=== PATIENT | male | born 1945 | race Caucasian/White ===

== ENCOUNTER 2019-10-07 01:07 | Inpatient (IN) | payer OTHER ==
[~2019-10-07] VITALS: Ht 170.2 cm; Wt 80.7 kg
[2019-10-07 01:30] VITALS: BP_SYST 150
[2019-10-07 03:15] LABS: BILIRUBIN,URINE NEGATIVE (NEGATIVE); BLOOD, URINE 1+ (NEGATIVE); CLARITY/URINE CLEAR (CLEAR); COLOR,URINE YELLOW (YELLOW); GLUCOSE,URINE NEGATIVE (NEGATIVE); KETONES,URINE NEGATIVE (NEGATIVE); LEUKOCYTE ESTERASE ,URINE NEGATIVE (NEGATIVE); NITRITE, URINE NEGATIVE (NEGATIVE); PH,URINE 7.5 (5.0-8.0); PROTEIN URINE NEGATIVE (NEGATIVE); UROBILINOGEN,URINE 0.2 (0.2-1.0)
[2019-10-07 03:26] LABS: BACTERIA,URINE FEW /HPF (None Seen); WBC,URINE 0-3 /HPF (0-3)
[2019-10-07 03:27] LABS: BARBITURATE, URINE NEGATIVE (NEG <=200); BENZODIAZEPINE, URINE NEGATIVE (NEG <=150); CANNABINOID, URINE NEGATIVE (NEG <=50); COCAINE, URINE NEGATIVE (NEG <=150); METHAMPHETAMINES SCREEN,URINE NEGATIVE (NEG <=500); OPIATE, URINE POSITIVE (NEG <=100); PHENCYCLIDINE SCREEN,URINE NEGATIVE (NEG <=25); UR TRICYCLIC ANTIDEPRESSANTS NEGATIVE (NEG <=300); URINE AMPHETAMINE NEGATIVE (NEG <=500); URINE METHADONE NEGATIVE (NEG <=200); URINE OXYCODONE SCREEN NEGATIVE (NEG <=100); URINE PROPOXYPHENE SCREEN NEGATIVE (NEG <=300)
[2019-10-07 03:31] LABS: BASOPHILS % (AUTO) 0.2 % (0.0-2.0); EOSINOPHILS % (AUTO) 0.5 % (0.0-4.0); HEMATOCRIT 34.2 % (36-54); HEMOGLOBIN 11.7 g/dL (14.0-18.0); LYMPHOCYTES # (AUTO) 0.7 K/uL (1.0-5.5); LYMPHOCYTES % (AUTO) 9.5 % (20.5-51.5); MEAN CORPUSCULAR HEMOGLOBIN 32 pg (27-31); MEAN CORPUSCULAR HGB CONC 34 % (32-36); MEAN CORPUSCULAR VOLUME 94 fL (79.0-98.0); MONOCYTES # (AUTO) 1.2 K/uL (0.0-1.0); MONOCYTES % (AUTO) 16.4 % (1.7-9.3); NEUTROPHILS # (AUTO) 5.6 K/uL (1.8-7.7); NEUTROPHILS % (AUTO) 73.4 % (40.0-70.0); PLATELET COUNT (AUTO) 215 K/uL (130-430); RED BLOOD CELL COUNT(AUTO) 3.66 MIL/uL (4.2-6.2); RED CELL DISTRIBUTION WIDTH 14.3 % (9.0-15.0); WHITE BLOOD COUNT (AUTO) 7.6 K/uL (4.8-10.8)
[2019-10-07 03:46] LABS: ANION GAP 9 (5-15); CALCIUM 9.6 mg/dL (8.4-11.0); CHLORIDE 100 mmol/L (98-107); CREATININE 0.66 mg/dL (0.55-1.30); GLUCOSE 121 mg/dL (70-99); POTASSIUM 3.7 mmol/L (3.5-5.1); SODIUM SERUM 132 mmol/L (136-145); UREA NITROGEN, BLOOD 11 mg/dL (8-21)
[2019-10-07 03:52] LABS: ALANINE AMINOTRANSFERASE 58 U/L (12-78); ALBUMIN 2.6 g/dL (3.4-4.8); ASPARTATE AMINOTRANSFERASE 49 U/L (10-37); TOTAL BILIRUBIN 0.5 mg/dL (0.0-1.0)
[2019-10-07 03:53] LABS: ALCOHOL, BLOOD < 3 mg/dL (<10)
[2019-10-07] MEDS ORDERED: OSELTAMIVIR PHOSPHATE 75 MG CAPSULE PO ONE (04:15)
[2019-10-07] MEDS ORDERED: RISP1TAB7 PO (06:17)
[2019-10-07] MEDS ORDERED: PREG75CA PO (06:18)
[2019-10-07] MEDS ORDERED: MEMA1CAP4 PO (06:22)
[2019-10-07] MEDS ORDERED: TAMS-11 PO (06:23)
[2019-10-07] MEDS ORDERED: LINA145C PO (06:24)
[2019-10-07] MEDS ORDERED: HYDR-3925 PO (06:24)
[2019-10-07] MEDS ORDERED: ROSU5TAB13 PO (06:28)
[2019-10-07] MEDS ORDERED: HALOPERIDOL LACTATE 5 MG/ML VIAL IM PRN (06:45)
[2019-10-07] MEDS: ACETAMINOPHEN 325 MG TABLET PO PRN (08:39)
[2019-10-07 09:20] VITALS: BP_SYST 143
[2019-10-07 09:44] VITALS: BP_SYST 143
[2019-10-07 11:24] VITALS: BP_SYST 135
[2019-10-07] MEDS ORDERED: NALOXONE HCL 0.4 MG/ML AMP (NARCAN) IVP PRN (11:30)
[2019-10-07] MEDS: HYDROcodone/ACETAMIN 10-325 MG TAB PO PRN (15:58)
[2019-10-07 16:00] VITALS: BP_SYST 153
[2019-10-07] MEDS: risperiDONE 1 MG TABLET (RisperDAL) PO SCH (17:52)
[2019-10-07] MEDS: PREGABALIN 75 MG CAPSULE (LYRICA) PO SCH (21:00)
[2019-10-07] MEDS: TAMSULOSIN HCL 0.4 MG CAP PO SCH (21:00)
[2019-10-07 21:10] VITALS: BP_SYST 137
[2019-10-08 02:00] VITALS: BP_SYST 136
[2019-10-08] MEDS: ATORVASTATIN 20 MG TABLET PO SCH (08:08)
[2019-10-08] MEDS: PREGABALIN 75 MG CAPSULE (LYRICA) PO SCH ×2 (08:08→20:50)
[2019-10-08 08:09] VITALS: BP_SYST 125
[2019-10-08] MEDS: HYDROcodone/ACETAMIN 10-325 MG TAB PO PRN ×2 (08:09→17:19)
[2019-10-08 08:17] LABS: BASOPHILS # (AUTO) 0.1 K/uL (0.0-0.2); BASOPHILS % (AUTO) 0.8 % (0.0-2.0); EOSINOPHILS % (AUTO) 0.1 % (0.0-4.0); HEMATOCRIT 34.2 % (36-54); HEMOGLOBIN 11.7 g/dL (14.0-18.0); LYMPHOCYTES # (AUTO) 0.9 K/uL (1.0-5.5); MEAN CORPUSCULAR HEMOGLOBIN 32 pg (27-31); MEAN CORPUSCULAR HGB CONC 34 % (32-36); MEAN CORPUSCULAR VOLUME 93 fL (79.0-98.0); MONOCYTES # (AUTO) 1.1 K/uL (0.0-1.0); NEUTROPHILS # (AUTO) 4.3 K/uL (1.8-7.7); NEUTROPHILS % (AUTO) 68.1 % (40.0-70.0); PLATELET COUNT (AUTO) 248 K/uL (130-430); RED BLOOD CELL COUNT(AUTO) 3.67 MIL/uL (4.2-6.2); RED CELL DISTRIBUTION WIDTH 14.4 % (9.0-15.0); WHITE BLOOD COUNT (AUTO) 6.3 K/uL (4.8-10.8)
[2019-10-08 08:53] LABS: CHLORIDE 100 mmol/L (98-107); POTASSIUM 3.5 mmol/L (3.5-5.1); SODIUM SERUM 133 mmol/L (136-145)
[2019-10-08 08:54] LABS: ALANINE AMINOTRANSFERASE 53 U/L (12-78); ALBUMIN 2.5 g/dL (3.4-4.8); ANION GAP 8 (5-15); ASPARTATE AMINOTRANSFERASE 39 U/L (10-37); CALCIUM 9.7 mg/dL (8.4-11.0); CREATININE 0.85 mg/dL (0.55-1.30); GLUCOSE 105 mg/dL (70-99); TOTAL BILIRUBIN 0.4 mg/dL (0.0-1.0); UREA NITROGEN, BLOOD 11 mg/dL (8-21)
[2019-10-08] MEDS ORDERED: NON-FORMULARY MEDICATION (Linaclotide (Linzess) 145 MCG) PO SCH (09:00)
[2019-10-08] MEDS ORDERED: MEMANTINE HCL PO SCH (09:00)
[2019-10-08] MEDS ORDERED: [UNRECOGNIZED DRUG - OTHER] PO SCH (09:00)
[2019-10-08] MEDS ORDERED: DONEPEZIL HCL PO SCH (09:00)
[2019-10-08 12:00] VITALS: BP_SYST 107
[2019-10-08] MEDS ORDERED: ANUSOL 1 EA SUPP.RECT (PREPARATION H) RC ONE (16:45)
[2019-10-08 17:00] VITALS: BP_SYST 115
[2019-10-08] MEDS: risperiDONE 1 MG TABLET (RisperDAL) PO SCH (17:18)
[2019-10-08 20:14] VITALS: BP_SYST 135
[2019-10-08] MEDS: ANUSOL 1 EA SUPP.RECT (PREPARATION H) RC SCH (20:50)
[2019-10-08] MEDS: TAMSULOSIN HCL 0.4 MG CAP PO SCH (20:50)
[2019-10-08 23:46] VITALS: BP_SYST 136
[2019-10-09 07:50] VITALS: BP_SYST 114
[2019-10-09] MEDS: ANUSOL 1 EA SUPP.RECT (PREPARATION H) RC SCH ×2 (09:01→21:06)
[2019-10-09] MEDS: PREGABALIN 75 MG CAPSULE (LYRICA) PO SCH ×2 (09:01→21:06)
[2019-10-09] MEDS: ATORVASTATIN 20 MG TABLET PO SCH (09:01)
[2019-10-09 12:00] VITALS: BP_SYST 118
[2019-10-09] MEDS: HYDROcodone/ACETAMIN 10-325 MG TAB PO PRN (13:29)
[2019-10-09 21:01] VITALS: BP_SYST 124
[2019-10-09] MEDS: TAMSULOSIN HCL 0.4 MG CAP PO SCH (21:06)
[2019-10-10 00:29] VITALS: BP_SYST 119
[2019-10-10] MEDS: ACETAMINOPHEN 325 MG TABLET PO PRN (00:32)
[2019-10-10 08:09] VITALS: BP_SYST 112
[2019-10-10] MEDS: ATORVASTATIN 20 MG TABLET PO SCH (08:10)
[2019-10-10] MEDS: PREGABALIN 75 MG CAPSULE (LYRICA) PO SCH ×2 (08:10→21:07)
[2019-10-10] MEDS: ANUSOL 1 EA SUPP.RECT (PREPARATION H) RC SCH ×2 (08:11→21:00)
[2019-10-10] MEDS: QUEtiapine FUMARATE 25 MG TABLET PO SCH ×2 (08:18→15:00)
[2019-10-10] MEDS: HYDROcodone/ACETAMIN 10-325 MG TAB PO PRN ×2 (08:19→13:03)
[2019-10-10 12:17] VITALS: BP_SYST 109
[2019-10-10] MEDS ORDERED: CHOLECALCIFEROL (VITAMIN D3) 2,000 UNIT TABLET PO ONE (15:45)
[2019-10-10] MEDS ORDERED: MAGNESIUM OXIDE 400 MG TABLET PO ONE (15:45)
[2019-10-10] MEDS ORDERED: ASCORBIC ACID 500 MG TABLET PO ONE (15:45)
[2019-10-10 16:00] VITALS: BP_SYST 159
[2019-10-10] MEDS: ASPIRIN 325 MG TABLET (ECOTRIN) PO SCH (18:18)
[2019-10-10] MEDS ORDERED: QUEtiapine FUMARATE 25 MG TABLET PO SCH (21:00)
[2019-10-10] MEDS: TAMSULOSIN HCL 0.4 MG CAP PO SCH (21:07)
[2019-10-10] MEDS: MAGNESIUM OXIDE 400 MG TABLET PO SCH (21:07)
[2019-10-10] MEDS: OSELTAMIVIR PHOSPHATE 75 MG CAPSULE PO SCH (21:07)
[2019-10-10] MEDS: CHOLECALCIFEROL (VITAMIN D3) 2,000 UNIT TABLET PO SCH (21:07)
[2019-10-10] MEDS: ASCORBIC ACID 500 MG TABLET PO SCH (21:07)
[2019-10-10 21:08] VITALS: BP_SYST 139
[2019-10-10 23:33] VITALS: BP_SYST 119
[2019-10-11 07:13] LABS: BASOPHILS % (AUTO) 0.5 % (0.0-2.0); EOSINOPHILS % (AUTO) 0.2 % (0.0-4.0); HEMATOCRIT 33.9 % (36-54); HEMOGLOBIN 11.5 g/dL (14.0-18.0); LYMPHOCYTES % (AUTO) 16.5 % (20.5-51.5); MEAN CORPUSCULAR HEMOGLOBIN 32 pg (27-31); MEAN CORPUSCULAR HGB CONC 34 % (32-36); MEAN CORPUSCULAR VOLUME 94 fL (79.0-98.0); MONOCYTES # (AUTO) 0.3 K/uL (0.0-1.0); MONOCYTES % (AUTO) 5.4 % (1.7-9.3); NEUTROPHILS # (AUTO) 4.9 K/uL (1.8-7.7); NEUTROPHILS % (AUTO) 77.4 % (40.0-70.0); PLATELET COUNT (AUTO) 366 K/uL (130-430); RED BLOOD CELL COUNT(AUTO) 3.61 MIL/uL (4.2-6.2); RED CELL DISTRIBUTION WIDTH 13.9 % (9.0-15.0); WHITE BLOOD COUNT (AUTO) 6.3 K/uL (4.8-10.8)
[2019-10-11 07:30] LABS: PROTHROMBIN TIME 10.2 SECS (9.5-12.5)
[2019-10-11 07:44] LABS: ALANINE AMINOTRANSFERASE 60 U/L (12-78); ALBUMIN 2.5 g/dL (3.4-4.8); ANION GAP 7 (5-15); ASPARTATE AMINOTRANSFERASE 51 U/L (10-37); CALCIUM 9.2 mg/dL (8.4-11.0); CHLORIDE 101 mmol/L (98-107); CREATININE 0.93 mg/dL (0.55-1.30); GLUCOSE 114 mg/dL (70-99); POTASSIUM 3.8 mmol/L (3.5-5.1); SODIUM SERUM 135 mmol/L (136-145); TOTAL BILIRUBIN 0.3 mg/dL (0.0-1.0); UREA NITROGEN, BLOOD 11 mg/dL (8-21)
[2019-10-11] MEDS: PREGABALIN 75 MG CAPSULE (LYRICA) PO SCH (08:11)
[2019-10-11] MEDS: ASPIRIN 325 MG TABLET (ECOTRIN) PO SCH (08:11)
[2019-10-11] MEDS: MAGNESIUM OXIDE 400 MG TABLET PO SCH (08:11)
[2019-10-11] MEDS: OSELTAMIVIR PHOSPHATE 75 MG CAPSULE PO SCH (08:11)
[2019-10-11] MEDS: ASCORBIC ACID 500 MG TABLET PO SCH (08:11)
[2019-10-11] MEDS: ATORVASTATIN 20 MG TABLET PO SCH (08:11)
[2019-10-11] MEDS: QUEtiapine FUMARATE 25 MG TABLET PO SCH ×2 (08:11→14:45)
[2019-10-11] MEDS: ANUSOL 1 EA SUPP.RECT (PREPARATION H) RC SCH (08:12)
[2019-10-11] MEDS: CHOLECALCIFEROL (VITAMIN D3) 2,000 UNIT TABLET PO SCH (08:12)
[2019-10-11 08:13] VITALS: BP_SYST 120
[2019-10-11 12:35] VITALS: BP_SYST 110
[2019-10-11 14:02] VITALS: BP_SYST 114
[2019-10-11] MEDS: HYDROcodone/ACETAMIN 10-325 MG TAB PO PRN (15:38)
[2019-10-11 16:01] VITALS: BP_SYST 114
[2019-10-11] MEDS ORDERED: SER25 PO (17:11)
[2019-10-11] MEDS ORDERED: QUET50TA PO (17:12)
[2019-10-11] MEDS ORDERED: OSEL75CA PO (17:13)
[2019-10-11] MEDS ORDERED: VITD2000 PO (17:14)
[2019-10-11] MEDS ORDERED: ASCO500C18 PO (17:16)
[2019-10-11] MEDS ORDERED: MAGN400T10 PO (17:17)
[2019-10-11] MEDS ORDERED: ZINC220T4 PO (17:17)
[2019-10-11] MEDS ORDERED: QUEtiapine FUMARATE 25 MG TABLET PO SCH (21:00)
== END 2019-10-11 18:05 | disposition home or self-care (01) | DRG 178 ==
LOC: SED 01:07 → SMU 06:53
PROVIDERS: ADMIT Internal Medicine; ATTEND Internal Medicine
DX: U07.1 COVID-19 (principal); F02.81 Dementia in other diseases classified elsewhere, unspecified severity, with behavioral disturbance; E44.1 Mild protein-calorie malnutrition; F20.9 Schizophrenia, unspecified; E78.5 Hyperlipidemia, unspecified; G89.4 Chronic pain syndrome; N40.0 Benign prostatic hyperplasia without lower urinary tract symptoms; J11.1 Influenza due to unidentified influenza virus with other respiratory manifestations; G30.9 Alzheimer's disease, unspecified; F29 Unspecified psychosis not due to a substance or known physiological condition; Z79.899 Other long term (current) drug therapy; Z88.0 Allergy status to penicillin
CPT/HCPCS: 36415; 80053; 80307; 81000-TC; 85025; 85379; 85610-TC; 85730-TC; 86140; 86710; 99285; G0482; G9035; U0003-CS